=== PATIENT | female | born 1975 | race Caucasian/White ===

== ENCOUNTER 2018-06-09 11:53 | Emergency (ER) | payer OTHER ==
[~2018-06-09] VITALS: Ht 190.5 cm; Wt 77.3 kg
[2018-06-09] MEDS ORDERED: AMOXICILLIN500 MG PO (13:22)
[2018-06-09] MEDS ORDERED: TORADOL PO (13:22)
[2018-06-09] MEDS ORDERED: DELTASONE20 MG PO (13:22)
[2018-06-09 13:30] VITALS: BP 139/74
[2018-06-09] MEDS ORDERED: ZITHROMAX250 MG PO (13:32)
== END 2018-06-09 13:30 | disposition home or self-care (01) ==
LOC: ED 11:53
DX: J02.9 Acute pharyngitis, unspecified (principal)

== ENCOUNTER 2018-07-29 13:42 | Emergency (ER) | payer OTHER ==
[~2018-07-29] VITALS: Ht 190.5 cm; Wt 80.0 kg
[~2018-07-29 13:42] MED LIST: AMOXICILLIN500 MG PO; DELTASONE20 MG PO; TORADOL PO; ZITHROMAX250 MG PO
[2018-07-29 15:01] VITALS: BP 168/101
[2018-07-29] MEDS ORDERED: MOTRIN400 MG PO (17:16)
== END 2018-07-29 17:15 | disposition home or self-care (01) ==
LOC: ED 13:42
DX: S20.212A Contusion of left front wall of thorax, initial encounter (principal); S20.211A Contusion of right front wall of thorax, initial encounter; W01.0XXA Fall on same level from slipping, tripping and stumbling without subsequent striking against object, initial encounter; Y92.009 Unspecified place in unspecified non-institutional (private) residence as the place of occurrence of the external cause

== ENCOUNTER 2020-01-15 11:09 | Emergency (ER) | payer SELFPAY ==
[~2020-01-15] VITALS: Ht 190.5 cm; Wt 81.0 kg
[~2020-01-15 11:09] MED LIST changes: +MOTRIN400 MG PO
[2020-01-15] MEDS ORDERED: FLEXERIL PO (12:55)
[2020-01-15 13:10] VITALS: BP 127/79
== END 2020-01-15 13:08 | disposition home or self-care (01) | DRG 563 ==
LOC: ED 11:09
DX: S46.912A Strain of unspecified muscle, fascia and tendon at shoulder and upper arm level, left arm, initial encounter (principal); X50.0XXA Overexertion from strenuous movement or load, initial encounter; Y93.E6 Activity, residential relocation; Y92.009 Unspecified place in unspecified non-institutional (private) residence as the place of occurrence of the external cause

== ENCOUNTER 2020-12-14 09:32 | Emergency (ER) | payer OTHER ==
[~2020-12-14] VITALS: Ht 182.9 cm; Wt 81.0 kg
[~2020-12-14 09:32] MED LIST changes: +FLEXERIL PO
[2020-12-14] MEDS ORDERED: ZPAK PO (10:47)
[2020-12-14 10:53] VITALS: BP 138/88
== END 2020-12-14 10:58 | disposition home or self-care (01) | DRG 153 ==
LOC: ED 09:32
DX: J06.9 Acute upper respiratory infection, unspecified (principal); Z20.822 Contact with and (suspected) exposure to COVID-19

== ENCOUNTER 2021-02-24 11:02 | Emergency (ER) | payer OTHER ==
[~2021-02-24] VITALS: Ht 182.9 cm; Wt 70.0 kg
[~2021-02-24 11:02] MED LIST changes: +ZPAK PO
[2021-02-24 12:37] VITALS: BP 151/90
== END 2021-02-24 12:40 | disposition home or self-care (01) | DRG 179 ==
LOC: ED 11:02
DX: U07.1 COVID-19 (principal); J06.9 Acute upper respiratory infection, unspecified

== ENCOUNTER 2021-03-03 11:54 | Emergency (ER) | payer OTHER ==
[~2021-03-03] VITALS: Ht 182.9 cm; Wt 82.0 kg
[2021-03-03 12:32] LABS: HEMATOCRIT 40.3 % (37.0-47.0); IMMATURE GRANULOCYTES 0.2 % (0.0-5.0); MEAN CELL VOLUME 90.8 fL CALC (80.0-100.0); MEAN CORPUSCULAR HGB 29.3 pG CALC (26.0-32.0); MEAN CORPUSCULAR HGB CONC 32.3 g/dL CAL (32.0-36.0); NEUT# 9.72 thou/uL (2.00-7.15); RED BLOOD COUNT 4.44 mill/uL (4.20-5.60); RED CELL DISTRI WIDTH 12.8 % (11.5-15.5)
[2021-03-03 12:45] LABS: ALKALINE PHOSPHATASE 77 u/l (38-126); ANION GAP 14 (6-22 (CALC)); BILIRUBIN, TOTAL 0.6 mg/dL (0.0-1.4); BUN 10 mg/dL (7-17); BUN/CREATININE RATIO 14 (12-20 (CALC)); CARBON DIOXIDE 24 mmol/l (22-30); CHLORIDE 102 mmol/l (95-108); CREATININE 0.7 mg/dL (0.5-1.0); D-DIMER 1.93 mg/L (0.19-0.60); GFR > 60 ML/MIN (>=60 (CALC)); GFR FOR AFR.AMER. > 60 ML/MIN (>=60 (CALC)); LIPASE 145 u/l (23-300); POTASSIUM 3.9 mmol/l (3.5-5.1); SGOT/AST 48 u/l (14-36); SODIUM 136 mmol/l (137-146); TOTAL PROTEIN 7.9 g/dL (6.3-8.2)
[2021-03-03 12:48] LABS: ACT PARTIAL THROMBO TIME 23.7 SECONDS (20.0-32.5)
[2021-03-03 13:23] VITALS: BP 170/95
[2021-03-03] MEDS ORDERED: VENTOLIN HFA IN (14:23)
[2021-03-03] MEDS ORDERED: ZPAK PO (14:23)
[2021-03-03] MEDS ORDERED: DECADRON2 MG PO (14:23)
== END 2021-03-03 15:59 | disposition home or self-care (01) | DRG 177 ==
LOC: ED 11:54
DX: U07.1 COVID-19 (principal); J12.82 Pneumonia due to coronavirus disease 2019
CPT/HCPCS: Q9967

== ENCOUNTER 2021-04-02 15:21 | Emergency (ER) | payer OTHER ==
[~2021-04-02] VITALS: Ht 182.9 cm; Wt 90.0 kg
[~2021-04-02 15:21] MED LIST changes: +DECADRON2 MG PO; +VENTOLIN HFA IN
[2021-04-02 17:51] LABS: HEMATOCRIT 41.4 % (37.0-47.0); HEMOGLOBIN 13.5 g/dl (12.0-16.0); IMMATURE GRANULOCYTES 0.3 % (0.0-5.0); MEAN CELL VOLUME 90.2 fL CALC (80.0-100.0); MEAN CORPUSCULAR HGB 29.4 pG CALC (26.0-32.0); MEAN CORPUSCULAR HGB CONC 32.6 g/dL CAL (32.0-36.0); NEUT# 3.22 thou/uL (2.00-7.15); RED BLOOD COUNT 4.59 mill/uL (4.20-5.60); RED CELL DISTRI WIDTH 13.8 % (11.5-15.5)
[2021-04-02 18:05] LABS: URINE BILIRUBIN - DIPSTICK NEGATIVE (NEGATIVE); URINE BLOOD DIPSTICK NEGATIVE (NEGATIVE); URINE COLOR YELLOW; URINE GLUCOSE - DIPSTICK NEGATIVE (NEGATIVE); URINE KETONE NEGATIVE (NEGATIVE); URINE LEUK ESTERASE NEGATIVE (NEGATIVE); URINE NITRITE - DIPSTICK NEGATIVE (Negative); URINE PROTEIN - DIPSTICK TRACE mg/dL (NEG-TRACE); URINE SPECIFIC GRAVITY 1.025; URINE UROBILINOGEN - DIPSTICK 0.2 E.U./dL (0.2)
[2021-04-02 18:07] LABS: ALBUMIN 4.2 g/dL (3.2-5.0); ALKALINE PHOSPHATASE 106 u/l (38-126); AMYLASE 58 u/l (30-110); ANION GAP 13 (6-22 (CALC)); BILIRUBIN, TOTAL 0.5 mg/dL (0.0-1.4); BUN 9 mg/dL (7-17); BUN/CREATININE RATIO 13 (12-20 (CALC)); CARBON DIOXIDE 27 mmol/l (22-30); CHLORIDE 100 mmol/l (95-108); CREATININE 0.7 mg/dL (0.5-1.0); GFR > 60 ML/MIN (>=60 (CALC)); GFR FOR AFR.AMER. > 60 ML/MIN (>=60 (CALC)); POTASSIUM 3.7 mmol/l (3.5-5.1); SODIUM 135 mmol/l (137-146); TOTAL PROTEIN 8.1 g/dL (6.3-8.2)
[2021-04-02 18:09] LABS: SGOT/AST 113 u/l (14-36)
[2021-04-02 19:58] VITALS: BP 141/68
== END 2021-04-02 19:58 | disposition home or self-care (01) | DRG 761 ==
LOC: ED 15:21
PROVIDERS: Emergency Medicine
DX: N83.201 Unspecified ovarian cyst, right side (principal)
CPT/HCPCS: Q9967

== ENCOUNTER 2021-10-11 08:27 | Emergency (ER) | payer OTHER ==
[~2021-10-11] VITALS: Ht 182.9 cm; Wt 81.8 kg
[2021-10-11] VITALS (8 sets, daily range): BP systolic 114–137; BP diastolic 75–100
== END 2021-10-11 11:00 | disposition home or self-care (01) | DRG 563 ==
LOC: ED 08:27
DX: S93.402A Sprain of unspecified ligament of left ankle, initial encounter (principal); S93.602A Unspecified sprain of left foot, initial encounter; W54.1XXA Struck by dog, initial encounter; Y92.009 Unspecified place in unspecified non-institutional (private) residence as the place of occurrence of the external cause

== ENCOUNTER 2021-12-07 13:05 | Emergency (ER) | payer OTHER ==
[~2021-12-07] VITALS: Ht 182.9 cm; Wt 70.0 kg
[2021-12-07 13:09] VITALS: BP 168/109
[2021-12-07 13:10] VITALS: BP 151/101
[2021-12-07 13:15] VITALS: BP 134/97
[2021-12-07 13:30] VITALS: BP 138/96
[2021-12-07 13:45] VITALS: BP 134/98
[2021-12-07] MEDS ORDERED: ZPAK PO (13:59)
[2021-12-07 14:04] VITALS: BP 134/98
== END 2021-12-07 14:11 | disposition home or self-care (01) | DRG 153 ==
LOC: ED 13:05
DX: J06.9 Acute upper respiratory infection, unspecified (principal); Z20.822 Contact with and (suspected) exposure to COVID-19

== ENCOUNTER 2022-06-24 15:00 | Emergency (ER) | payer SELFPAY ==
[~2022-06-24] VITALS: Ht 190.5 cm; Wt 110.0 kg
[2022-06-24 16:00] LABS: URINE BILIRUBIN - DIPSTICK NEGATIVE (NEGATIVE); URINE BLOOD DIPSTICK LARGE (NEGATIVE); URINE COLOR YELLOW; URINE GLUCOSE - DIPSTICK NEGATIVE (NEGATIVE); URINE KETONE NEGATIVE (NEGATIVE); URINE LEUK ESTERASE NEGATIVE (NEGATIVE); URINE PROTEIN - DIPSTICK NEGATIVE (NEG-TRACE); URINE SPECIFIC GRAVITY >=1.030; URINE UROBILINOGEN - DIPSTICK 0.2 E.U./dL (0.2)
[2022-06-24 16:02] LABS: HEMATOCRIT 37.3 % (37.0-47.0); HEMOGLOBIN 12.7 g/dl (12.0-16.0); IMMATURE GRANULOCYTES 0.1 % (0.0-5.0); MEAN CELL VOLUME 91.9 fL CALC (80.0-100.0); MEAN CORPUSCULAR HGB 31.3 pG CALC (26.0-32.0); NEUT# 5.38 thou/uL (2.00-7.15); RED BLOOD COUNT 4.06 mill/uL (4.20-5.60)
[2022-06-24 16:03] LABS: URINE NITRITE - DIPSTICK NEGATIVE (Negative)
[2022-06-24 16:14] LABS: URINE SQUAMOUS EPITHELIAL CELL FEW EPI/hpf (0-FEW); URINE WBC 0-2 WBC/hpf (0-5)
[2022-06-24 16:20] LABS: ALBUMIN 4.1 g/dL (3.2-5.0); ALKALINE PHOSPHATASE 66 u/l (38-126); BUN 11 mg/dL (7-17); BUN/CREATININE RATIO 12 (12-20 (CALC)); CARBON DIOXIDE 29 mmol/l (22-30); CHLORIDE 106 mmol/l (95-108); GFR FOR AFR.AMER. > 60 ML/MIN (>=60 (CALC)); GFR OTHER RACES 60 ML/MIN (>=60 (CALC)); POTASSIUM 3.5 mmol/l (3.5-5.1); TOTAL PROTEIN 7.3 g/dL (6.3-8.2)
[2022-06-24 16:23] LABS: ANION GAP 12 (6-22 (CALC)); BILIRUBIN, TOTAL 0.2 mg/dL (0.0-1.4); SGOT/AST 27 u/l (14-36); SODIUM 143 mmol/l (137-146)
[2022-06-24] MEDS ORDERED: LEVAQUIN750 M1 PO (17:51)
[2022-06-24 18:15] VITALS: BP 158/99
== END 2022-06-24 18:15 | disposition home or self-care (01) | DRG 392 ==
LOC: ED 15:00
PROVIDERS: Physician Assistant Surgical
DX: R10.9 Unspecified abdominal pain (principal); R31.9 Hematuria, unspecified; R30.0 Dysuria
CPT/HCPCS: Q9967

== ENCOUNTER 2023-01-12 05:09 | Observation (INO) | payer MEDICAID ==
[~2023-01-12] VITALS: Ht 190.5 cm; Wt 81.0 kg
[2023-01-12] VITALS (25 sets, daily range): BP systolic 112–175; BP diastolic 60–112
[~2023-01-12 05:09] MED LIST changes: +LEVAQUIN750 M1 PO
[2023-01-12 05:37] LABS: BASO% 0.3 % (0-3); EOS% 0.8 % (0-8); HEMATOCRIT 41.6 % (37.0-47.0); HEMOGLOBIN 13.7 g/dl (12.0-16.0); IMMATURE GRANULOCYTES 0.1 % (0.0-5.0); LYMPH% 33.9 % (15-41); MEAN CELL VOLUME 89.8 fL CALC (80.0-100.0); MEAN CORPUSCULAR HGB 29.6 pG CALC (26.0-32.0); MEAN CORPUSCULAR HGB CONC 32.9 g/dL CAL (32.0-36.0); MONO% 6.5 % (2-13); NEUT# 5.28 thou/uL (2.00-7.15); NEUT% 58.4 % (42-76); RED BLOOD COUNT 4.63 mill/uL (4.20-5.60); RED CELL DISTRI WIDTH 12.2 % (11.5-15.5)
[2023-01-12 05:39] LABS: URINE BILIRUBIN - DIPSTICK NEGATIVE (NEGATIVE); URINE BLOOD DIPSTICK NEGATIVE (NEGATIVE); URINE COLOR YELLOW; URINE GLUCOSE - DIPSTICK NEGATIVE (NEGATIVE); URINE KETONE NEGATIVE (NEGATIVE); URINE LEUK ESTERASE NEGATIVE (NEGATIVE); URINE PH 6.5 (4.5-8.0); URINE PROTEIN - DIPSTICK NEGATIVE (NEG-TRACE); URINE SPECIFIC GRAVITY <=1.005; URINE UROBILINOGEN - DIPSTICK 0.2 E.U./dL (0.2)
[2023-01-12 05:46] LABS: URINE NITRITE - DIPSTICK NEGATIVE (Negative)
[2023-01-12 05:55] LABS: ALBUMIN 4.7 g/dL (3.2-5.0); ALKALINE PHOSPHATASE 65 u/l (38-126); AMYLASE 66 u/l (30-110); BUN 16 mg/dL (7-17); BUN/CREATININE RATIO 21 (12-20 (CALC)); CHLORIDE 105 mmol/l (95-108); CREATININE 0.8 mg/dL (0.5-1.0); GFR FOR AFR.AMER. > 60 ML/MIN (>=60 (CALC)); GFR OTHER RACES > 60 ML/MIN (>=60 (CALC)); LIPASE 198 u/l (23-300); POTASSIUM 4.1 mmol/l (3.5-5.1); SGOT/AST 26 u/l (14-36); SODIUM 138 mmol/l (137-146)
[2023-01-12 06:06] LABS: ANION GAP 14 (6-22 (CALC)); BILIRUBIN, TOTAL 0.3 mg/dL (0.02-1.3); CARBON DIOXIDE 23 mmol/l (22-30)
[2023-01-13 04:45] VITALS: BP 101/59
[2023-01-13 05:20] VITALS: BP 101/59
[2023-01-13 07:48] VITALS: BP 116/79
[2023-01-13] MEDS ORDERED: PERCOCET 5/325M1 TAB PO (09:01)
[2023-01-13 10:13] VITALS: BP 125/83
[2023-01-13 10:20] VITALS: BP 125/83
== END 2023-01-13 10:38 | disposition home or self-care (01) ==
LOC: ED 05:09 → ED-I 09:25 → ED 09:44 → MS2 09:45
PROVIDERS: Emergency Medicine; ADMIT Surgery; ATTEND Surgery
DX: K80.12 Calculus of gallbladder with acute and chronic cholecystitis without obstruction (principal); Z87.442 Personal history of urinary calculi; Z20.822 Contact with and (suspected) exposure to COVID-19
CPT/HCPCS: G0378; J0131; J1100; J2710; Q9967

== ENCOUNTER 2023-07-30 09:57 | Emergency (ER) | payer MEDICAID ==
[~2023-07-30] VITALS: Ht 188 cm; Wt 79.3 kg
[~2023-07-30 09:57] MED LIST changes: +BACTRIM DS1 TAB PO; +METRONIDAZOLE500 MG PO; +PERCOCET 5/325M1 TAB PO
[2023-07-30 10:42] VITALS: BP 152/99
[2023-07-30 10:45] VITALS: BP 142/110
[2023-07-30 11:00] VITALS: BP 132/88
[2023-07-30 11:16] VITALS: BP 110/68
[2023-07-30 11:25] VITALS: BP 110/68
== END 2023-07-30 11:30 | disposition home or self-care (01) ==
LOC: ED 09:57
DX: S81.852D Open bite, left lower leg, subsequent encounter (principal); W54.0XXD Bitten by dog, subsequent encounter